=== PATIENT | female | born 1965 ===

== ENCOUNTER 2017-07-02 10:08 | Outpatient (CLI) | payer OTHER | END 2017-07-02 15:11 | disposition home or self-care (01) | LOC: MAMO-SONO 10:08 | DX: Z12.31 Encounter for screening mammogram for malignant neoplasm of breast (principal); Z87.898 Personal history of other specified conditions; N63.10 Unspecified lump in the right breast, unspecified quadrant; N63.20 Unspecified lump in the left breast, unspecified quadrant ==

== ENCOUNTER 2017-11-22 10:23 | Outpatient (CLI) | payer OTHER | END 2017-11-22 10:25 | disposition home or self-care (01) | LOC: SONOGRAMA 10:23 | DX: N64.4 Mastodynia (principal); N63.10 Unspecified lump in the right breast, unspecified quadrant; N63.20 Unspecified lump in the left breast, unspecified quadrant ==

== ENCOUNTER → 2018-08-13 | Outpatient (CLI) | payer OTHER | END | disposition home or self-care (01) | LOC: MAMO-SONO 07:45 | DX: Z12.31 Encounter for screening mammogram for malignant neoplasm of breast (principal); Z87.898 Personal history of other specified conditions; N60.11 Diffuse cystic mastopathy of right breast; N60.12 Diffuse cystic mastopathy of left breast ==

== ENCOUNTER 2020-04-29 09:41 | Outpatient (CLI) | payer OTHER | END 2020-04-29 09:54 | disposition home or self-care (01) | LOC: MAMO-SONO 09:41 | PROVIDERS: ATTEND Obstetrics & Gynecology | DX: E04.1 Nontoxic single thyroid nodule (principal); E03.8 Other specified hypothyroidism; Z12.31 Encounter for screening mammogram for malignant neoplasm of breast; N64.59 Other signs and symptoms in breast; N60.11 Diffuse cystic mastopathy of right breast; N60.12 Diffuse cystic mastopathy of left breast; R10.2 Pelvic and perineal pain ==

== ENCOUNTER 2020-04-29 12:17 | Outpatient (CLI) | payer OTHER | END 2020-04-29 14:30 | disposition home or self-care (01) | LOC: NUCLEAR 12:17 | PROVIDERS: ATTEND Obstetrics & Gynecology | DX: M81.0 Age-related osteoporosis without current pathological fracture (principal) ==

== ENCOUNTER 2020-11-10 10:15 | Outpatient (CLI) | payer OTHER | END 2020-11-10 10:23 | disposition home or self-care (01) | LOC: RAD 10:15 | DX: M25.511 Pain in right shoulder (principal) ==